=== PATIENT | male | born 1990 | race African-American/Black ===

== ENCOUNTER 2024-04-15 21:03 | Emergency (ER) | payer OTHER, SELFPAY ==
[2024-04-15 21:55] VITALS: BP 152/104; PULSE 80; RESP 16; TEMP 36.4; O2SAT 100
[2024-04-15 22:12] LABS: Add Urine Microscopic? YES; Appearance Urine Clear (Clear); Bacteria Urine None Seen /hpf; Bilirubin Urine Negative (Negative); Blood Urine Negative (Negative); Color Urine Yellow (Yellow); Glucose Urine UA Negative (Negative); Ketones Urine Trace mg/dL (Negative); Leukocyte Esterase Ur Trace LEU/UL (Negative); Nitrate Urine Negative (Negative); Non Pathogenic Casts 0-2; Protein Urine Negative (Negative); RBC Urine 0-2 /hpf (0-2); Specific Grav Ur 1.032 (1.001-1.035); Squamous Epithelial Cell Urine None Seen /hpf (Few); pH Urine 6.5 (5.0-9.0)
[2024-04-15 22:23] VITALS: BP 137/89; PULSE 77; RESP 18; O2SAT 100
--- NOTE | 2024-04-15 22:26 | PC.NURSE ---
Patient states he had syphilis 8 months ago and did not recieve the full treatment. Patient states he would like tested for that as well due to his current rash. All ER providers verbally notified by this RN.
--- NOTE | 2024-04-15 22:47 | ED.SKABFB ---
HPI - Skin/Abscess/Foreign Bdy General Chief complaint: Skin/Abscess/Foreign Body Stated complaint: rash Time Seen by Provider: 04/15/24 22:25 Source: patient Mode of arrival: ambulatory Limitations: no limitations History of Present Illness HPI narrative: This is a 33-year-old male who presents to the ED for chief complaint of rash and STD symptoms. Reports that he has had rash for around 9 months and was diagnosed this year with syphilis. States he received an IM antibiotic treatment has not had any follow-up or other treatment since then. States he recently had unprotected sex with another individual who was possibly exposed to STD. He has had penile discharge and dysuria. Endorses some general malaise but otherwise is asymptomatic. Denies fevers, chills, genital rash, confusion, syncope, numbness, weakness, chest pain, dyspnea, cough, sore throat. Related Data Allergies Allergy/AdvReac Type Severity Reaction Status Date / Time No Known Allergies Allergy Verified 04/15/24 22:54 Review of Systems Review of Systems: All systems as dictated in HPI Exam Narrative: GENERAL: Well-appearing, well-nourished, and in no acute distress. HEAD: Normocephalic, atraumatic. EYES: PERRLA and EOMI. ENT: Nares clear, no rhinorrhea or epistaxis. Mucous membranes moist. Oropharynx without tonsillar hypertrophy exudate or other lesions. NECK: Supple. No adenopathy or masses. CHEST: No respiratory distress. Clear to auscultation. No wheezes rales or rhonchi HEART: Regular rate and rhythm. No murmur heard. Normal peripheral pulses. ABDOMEN: Soft, nontender, nondistended, normal active bowel sounds. MSK: Normal range of motion. No edema. SKIN: Maculopapular/nodular rash to the abdomen, thorax and low back. Nontender. NEURO: Alert and oriented x4. No focal deficits. PSYCH: Normal mood and affect. exam deferred Course Vital Signs Vital signs: Vital Signs Temperature 97.6 F 04/15/24 21:55 Pulse Rate 80 04/15/24 21:55 Respiratory Rate 16 04/15/24 21:55 Blood Pressure 152/104 H 04/15/24 21:55 Pulse Oximetry 100 04/15/24 21:55 Oxygen Delivery Room Air 04/15/24 21:55 Temperature 97.6 F 04/15/24 21:55 Pulse Rate 77 04/15/24 22:23 Respiratory Rate 18 04/15/24 22:23 Blood Pressure 137/89 04/15/24 22:23 Pulse Oximetry 100 04/15/24 22:23 Oxygen Delivery Room Air 04/15/24 21:55 MDM - Skin/Abscess/Foreign Bdy MDM Narrative Medical decision making narrative: This is a 33-year-old male who presents to the ED for chief complaint of possible STI with rash. Was diagnosed with positive RPR syphilis several months ago. Vitals are normal. Exam does show maculopapular rash to the abdomen. Gonorrhea, chlamydia, Trichomonas negative today. RPR is positive. HIV negative He was given IM penicillin and 2 weeks of doxycycline. Strongly encouraged follow-up closely with PCP and or health department for this issue. Pt will be discharged in stable condition. Return precautions given and supportive measures discussed. Pt is understanding and agreeable with plan for discharge and follow-up with PCP. Lab Data Labs: Lab Results 04/15/24 Range/Units 22:03 Urine Color Yellow (Yellow) Urine Appearance Clear (Clear) Urine pH 6.5 (5.0-9.0) Ur Specific [place] 1.032 (1.001-1.035) Urine Protein Negative (Negative) mg/dL Urine Glucose (UA) Negative (Negative) mg/dL Urine Ketones Trace H (Negative) mg/dL Ur Blood (Man) Negative (Negative) Urine Nitrate Negative (Negative) Urine Bilirubin Negative (Negative) Urine Urobilinogen 1.0 (<2.0) mg/dL Leukocyte Esterase Rfl Trace H (Negative) ALTHEA/UL Urine RBC 0-2 (0-2) /hpf Urine WBC 11-20 H (0-3) /hpf Ur Squamous Epith Cells None seen (Few) /hpf Urine Bacteria None seen /hpf Urine Casts 0-2 C. trachomatis (PCR) Pending N. gonorrhoeae (PCR) Pending T. vaginalis (PCR) Pending
[2024-04-15] MEDS: PENICILLIN G BENZATHINE 2,400,000 UNITS/4 ML SYRINGE 2400000 UNITS IM (22:58)
[2024-04-15 23:16] LABS: Trichomonas Vag PCR NOT DETECTED (NOT DETECTE)
[2024-04-15 23:38] LABS: Rapid Plasma Reagin Reactive (NonReactive)
[2024-04-15 23:39] LABS: Chlamydia trachomatis NOT DETECTED (NOT DETECTE); Neisseria gonorrhoeae PCR NOT DETECTED (NOT DETECTE)
[2024-04-15 23:48] LABS: HIV 1/2 Ab P24 Ag Result Negative (Negative)
[2024-04-16] MEDS: DOXYCYCLINE HYCLATE 100 MG TABLET PO (00:28)
[2024-04-16] MEDS: cefTRIAXone 1 GM VIAL 0.5 GM IM (00:28)
[2024-04-16 00:32] VITALS: BP 136/80; PULSE 72; RESP 15; O2SAT 100
[2024-04-19 11:33] LABS: RPR Result REACTIVE (NON-REACTIVE)
== END 2024-04-16 00:33 | disposition home or self-care (01) ==
PROVIDERS: Emergency Medicine; Emergency Provider Physician Assistant
DX: A51.49 Other secondary syphilitic conditions (principal); R82.998 Other abnormal findings in urine
CPT/HCPCS: 36415; 81001; 86592; 86703; 87086; 87088; 87491; 87591; 87661; 96372; 99284; A9270; G0432; J0561; J0696

== ENCOUNTER 2024-09-04 12:39 | Emergency (ER) | payer OTHER, SELFPAY ==
[2024-09-04 12:59] VITALS: BP 120/69; PULSE 100; RESP 16; TEMP 37.4; O2SAT 100
[2024-09-04 13:48] LABS: Influenza A QL RT-PCR Positive (Negative); Influenza B QL RT-PCR Negative (Negative); RSV RNA, RT-PCR Negative (Negative); SARS-CoV-2 RNA PCR Negative (Negative)
--- OUTSIDE RECORDS SUMMARY | 2024-09-04 14:28 | XMS_ITS | Referral Summary ---
Author Organization [place] [id number] [facility] Address [address] [place] [address] Care Team Providers Care Lumber Grader Name Role Phone Hailey Jerez NP Primary Care Provider [phone] Allergies No known active allergies Medications cyclobenzaprine (FLEXERIL) 10 mg tablet Take 1 tablet (10 mg total) by mouth 2 (two) times a day as needed for muscle spasms 20 tablet 1 Active doxycycline (VIBRAMYCIN) 100 mg capsule Take 1 tablet/capsule (100 mg total) by mouth 2 (two) times a day 14 capsule 2 Active HYDROcodone-francisco j taminophen (NORCO) 5-325 mg per tabletIndicatio ns:Pain Take 0.5-1 tablets by mouth every 6 (six) hours as needed for pain 12 tablet 2 Active lidocaine viscous (XYLOCAINE) 2 % solution Apply 5 mL to the mouth or throat every 3 (three) hours 100 mL 2 Active ibuprofen (ADVIL,MOTRIN) 800 mg tablet Take 1 tablet (800 mg total) by mouth 3 (three) times a day 21 tablet 2 Active diphenhydrAMINE (BENADRYL) 25 mg capsule Take 1 tablet/capsule (25 mg total) by mouth every 6 (six) hours as needed for itching 30 tablet/capsul e 2 Active famotidine (PEPCID) 20 mg tablet Take 1 tablet (20 mg total) by mouth 2 (two) times a day for 7 days 14 tablet 2 Active EPINEPHrine 0.3 mg/0.3 mL auto-injection syringeIndicati ons:Anaphylaxis Inject 0.3 mL (0.3 mg total) into the muscle as instructed once for 1 dose 1 each 2 Active artificial tears (ISOPTO TEARS) 0.5 % ophthalmic solution Administer 1 drop into both eyes as needed (for eye pain) 15 mL 4 Active ketorolac (TORADOL) 10 mg tablet Take 1 tablet (10 mg total) by mouth every 6 (six) hours as needed for pain 20 tablet 4 Active traMADoL (ULTRAM) 50 mg tablet Take 1 tablet (50 mg total) by mouth every 6 (six) hours 12 tablet 4 Active Active Problems No known active problems Social History Tobacco Use Types Packs/Day Years Used Date Smoking Tobacco: Every Day Cigarettes Smokeless Tobacco: Never Alcohol Use Standard Drinks/Week Comments Yes 0 (1 standard drink = 0.6 oz pur e alcohol) Personal Safety Answer Date Recorded Have you ever been in or are you currently in a harmful physical or emotional relationship or is someone making you feel afraid or unsafe? 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 Gender Identity Not on file Sexual Orientation Not on file Last Filed Vital Signs Vital Sign Reading Time Taken Comments Blood Pressure 116/97 03/14/2024 8:30 PM CDT Pulse 78 03/14/2024 8:30 PM CDT Temperature 36.4 ??C (97.5 ??F) 03/14/2024 5:17 PM CD T Respiratory Rate 18 03/14/2024 8:00 PM CDT Oxygen Saturation 98% 03/14/2024 8:30 PM CDT Inhaled Oxygen Concentration - - Weight 66.7 kg (147 lb) 03/14/2024 5:17 PM CDT Height 180.3 cm (5' 11 ) 12/27/2023 2:49 AM CDT Body Mass Index 20.5 12/27/2023 2:49 AM CDT Plan of Treatment Not on file Insurance [facility] [place] [address] [place] [address] , [place] [address] [employer] SIG [id number] Care Teams Lumber Grader Relationship Specialty Start Date End Date Hailey Jerez NP PCP - General 02/01/20
--- OUTSIDE RECORDS SUMMARY | 2024-09-04 14:28 | XMS_ITS | Clinical Summary ---
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 Gender Identity Not on file Sexual Orientation Not on file Obstetrics History Last Filed Vital Signs Vital Sign Reading [...] 12/27/2023 2:49 AM CDT Plan of Treatment Health Maintenance Due Date Last Done Comments Depression Screening 1991 Hepatitis C Screening 1991 Pneumococcal vaccine <65 (1 of 2 - PCV) 1997 Varicella Vaccines (1 of 2 - 13+ 2-dose series) 2004 Regular Well Visit/Exam 18-64 2009 Influenza Vaccine (#1) 2024 DTaP/Tdap/Td Vaccine (7 - Td or Tdap) 10/11/2031 10/10/2021, 06/12/1999, 03/27/1994, Additional history exists HPV Vaccines Aged Out No longer eligi ble based on patient's age to complete this topic Insurance [place] [address] [address] [place] [address] [facility] [employer] SIG [id number] [facility] Care Teams Level Vial Setter Relationship Specialty Start Date End Date Hailey Jerez NP PCP - General 02/01/20
[2024-09-04 15:42] LABS: Add Urine Microscopic? NO; Appearance Urine Clear (Clear); Bilirubin Urine Negative (Negative); Blood Urine Negative (Negative); Color Urine Yellow (Yellow); Glucose Urine UA Negative (Negative); Ketones Urine Negative (Negative); Leukocyte Esterase Ur Negative LEU/UL (Negative); Nitrate Urine Negative (Negative); Protein Urine Negative (Negative); Specific Grav Ur 1.019 (1.001-1.035); pH Urine 7.5 (5.0-9.0)
--- NOTE | 2024-09-04 16:09 | ED.URI ---
HPI - URI/Sore Throat General Chief Complaint: Upper Respiratory Infection Stated Complaint: body aches, congestion Time Seen by Provider: 09/04/24 14:09 Source: patient Mode of arrival: ambulatory Limitations: no limitations History of Present Illness HPI Narrative: This is a 34-year-old male that presents to the emergency department for cold symptoms present over the last several days. Reports cough, congestion, myalgias, fevers. Also reports he has had abnormal penile discharge in his concern for STDs. Reports he was recently treated for syphilis and would like follow-up testing. Denies rashes or lesions. Related Data Allergies Allergy/AdvReac Type Severity Reaction Status Date / Time No Known Allergies Allergy Verified 04/15/24 22:54 Review of Systems Review of Systems: CONSTITUTIONAL: Denies fever ENT: Reports congestion, sore throat CARDIOVASCULAR: Denies chest pain RESPIRATORY: Reports cough. Denies dyspnea. GENITOURINARY: Reports dysuria All systems reviewed & are unremarkable except as noted in HPI and below PMFSH Past Medical History Medical History (Updated 09/04/24 @ 19:49 by Joanne Robert PA-C) History of syphilis Exam Narrative: GENERAL: Well-appearing, well-nourished, and in no acute distress. HEAD: Normocephalic, atraumatic. EYES: EOMI. ENT: Nares clear, no rhinorrhea or epistaxis. Mucous membranes moist. Oropharynx without tonsillar hypertrophy exudate or other lesions. Bilateral TMs pearly kumar non-bulging NECK: Supple. No adenopathy or masses. CHEST: Clear to auscultation. No respiratory distress. No wheezes rales or rhonchi HEART: Regular rate and rhythm. No murmur heard. Normal peripheral pulses. EXTREMITIES: Normal range of motion. No edema. SKIN: Warm, dry, no rash. NEURO: No focal deficits. Alert and oriented x3. PSYCH: Normal mood and affect Course Course Emergency Course: patient updated on his workup and agrees with plan of care Vital Signs Vital signs: Vital Signs Temperature 99.3 F 09/04/24 12:59 Pulse Rate 100 09/04/24 12:59 Respiratory Rate 16 09/04/24 12:59 Blood Pressure 120/69 09/04/24 12:59 Pulse Oximetry 100 09/04/24 12:59 Temperature 98.1 F 09/04/24 19:48 Pulse Rate 87 09/04/24 19:48 Respiratory Rate 20 09/04/24 19:48 Blood Pressure 123/68 09/04/24 19:48 Pulse Oximetry 97 09/04/24 19:48 Oxygen Delivery Room Air 09/04/24 18:33 MDM - URI/Sore Throat MDM Narrative Medical decision making narrative: Patient presents to the emergency department for cold symptoms present over the last couple of days. He is afebrile and nontoxic appearing. Oxygen saturations 100% on room air. Lungs are clear on exam. Patient is influenza A positive. Will be started on Tamiflu. Instructed on further care viral infection. Patient additionally endorsing some dysuria and abnormal penile discharge. Urine is normal. Chlamydia, gonorrhea and Trichomonas are negative. RPR is positive. Confirmatory tests are pending. Patient was updated on his workup and agrees with plan of care. He is to follow up with primary provider. He was given warnings to return to the ER Differential Diagnosis Differential diagnosis: Likely upper respiratory infection, sinusitis, viral infection, bronchitis, influenza and other (covid, chlamydia, gonorrhea, Trichomonas, syphilis) Lab Data Attestation: I reviewed the patient's lab results. Labs: Lab Results 09/04/24 09/04/24 09/04/24 Range/Units 13:06 15:36 17:39 Urine Color Yellow (Yellow) Urine Appearance Clear (Clear) Urine pH 7.5 (5.0-9.0) Ur Specific [place] 1.019 (1.001-1.035) Urine Protein Negative (Negative) mg/dL Urine Glucose (UA) Negative (Negative) mg/dL Urine Ketones Negative (Negative) mg/dL Ur Blood (Man) Negative (Negative) Urine Nitrate Negative (Negative) Urine Bilirubin Negative (Negative) Urine Urobilinogen 1.0 (<2.0) mg/dL Leukocyte Esterase Rfl Negative (Negative) ALTHEA/UL RPR Reactive A (NonReactive) RPR Titer Add Testing Pending RPR w/Rflx to Titer Pending T.pallidum Ab (FTA-ABS) Pending C. trachomatis (PCR) Not detected (NOT DETECTE) Influenza A (RT-PCR) Positive A (Negative) Influenza B (RT-PCR) Negative (Negative) N. gonorrhoeae (PCR) Not detected (NOT DETECTE) RSV (RT-PCR) Negative (Negative) SARS-CoV-2 RNA (RT-PCR) Negative (Negative) T. vaginalis (PCR) Not detected (NOT DETECTE) Critical Care Time Critical Care Time Critical Care Time: No Discharge Plan Discharge Clinical Impression: History of syphilis, Influenza A Patient Disposition: Home, Self-Care Condition: Stable Instructions: Sexually Transmitted Diseases (ED), Influenza (ED) Additional Instructions: Return to the emergency department for worsening symptoms, or any other concerns Remain well-hydrated, get plenty of rest. Take Tylenol or Motrin [id number] for pain as needed. Flonase for nasal congestion. Zyrtec for runny nose. Lozenges or Chloraseptic spray for sore throat. Take Oseltamivir as prescribed. You need to follow up with your primary doctor for further management/evaluation of if you need any further treatment for syphilis. Your tests are pending Follow up with primary care doctor Patient Language: [place] Prescriptions: No Action doxycycline hyclate 100 mg capsule 100 mg PO BID 14 Days Qty: 28 0RF Follow-up/Referrals: UNKNOWN,DOCTOR [Primary Care Provider] - Stand Alone Forms: Work/School Release IP
[2024-09-04 16:50] LABS: Trichomonas Vag PCR NOT DETECTED (NOT DETECTE)
[2024-09-04 17:11] LABS: Chlamydia trachomatis NOT DETECTED (NOT DETECTE); Neisseria gonorrhoeae PCR NOT DETECTED (NOT DETECTE)
[2024-09-04] MEDS: ACETAMINOPHEN 500 MG TABLET 1000 MG PO (17:53)
[2024-09-04 18:33] VITALS: O2SAT 98
[2024-09-04 18:46] LABS: Rapid Plasma Reagin Reactive (NonReactive)
--- NOTE | 2024-09-04 19:14 | PC.NURSE ---
Report received from TERRENCE Mendiola. Assumed care of patient at this time.
[2024-09-04 19:48] VITALS: BP 123/68; PULSE 87; RESP 20; TEMP 36.7; O2SAT 97
[2024-09-07 11:39] LABS: RPR Result REACTIVE (NON-REACTIVE)
== END 2024-09-04 20:17 | disposition home or self-care (01) ==
PROVIDERS: Emergency Medicine; Emergency Provider Physician Assistant
DX: J10.1 Influenza due to other identified influenza virus with other respiratory manifestations (principal); Z86.19 Personal history of other infectious and parasitic diseases; Z20.822 Contact with and (suspected) exposure to COVID-19
CPT/HCPCS: 36415; 81003; 86592; 86780; 87491; 87591; 87637; 87661; 99283; A9270